=== PATIENT | female | born 1975 | race Hispanic/Latino ===

== ENCOUNTER 2016-12-13 21:17 | Emergency (ER) | payer OTHER ==
[~2016-12-13] VITALS: Ht 152.4 cm; Wt 48.8 kg
[2016-12-13 23:30] LABS: INFLUENZA A VIRAL ANTIGEN NEGATIVE; INFLUENZA B VIRAL ANTIGEN NEGATIVE
[2016-12-13 23:41] VITALS: BP 117/84
== END 2016-12-13 23:45 | disposition home or self-care (01) ==
LOC: EME 21:17
PROVIDERS: Emergency Medicine
DX: B34.9 Viral infection, unspecified (principal); J02.9 Acute pharyngitis, unspecified; Z88.6 Allergy status to analgesic agent
CPT/HCPCS: 71020; 87502; 87651 90; 99281; 99284

== ENCOUNTER 2017-02-26 12:06 | Emergency (ER) | payer OTHER ==
[~2017-02-26] VITALS: Ht 152.4 cm; Wt 47.9 kg
[2017-02-26 13:38] LABS: BASOPHIL COUNT 0.1 K/uL (0-0.1); EOSINOPHIL (%) 1.2 % (0-5); EOSINOPHIL COUNT 0.1 K/uL (0-0.3); HEMATOCRIT 37.3 % (36.0-46.0); IMMATURE GRANULOCYTE (%) 0.2 % (0.0-0.7); INSTRUMENT ABS NEUTROPHIL CT 6.4 K/uL; LYMPHOCYTE COUNT 2.1 K/uL (1.0-2.8); MCH 27.1 PG (29.0-34.0); MCHC 32.2 G/DL (30.0-36.0); MCV 84.2 FL (83-99); MEAN PLAT.VOLUME 9.4 uM^3 (9.5-12.4); MONOCYTE (%) 14.6 % (3-12); MONOCYTE COUNT 1.5 K/uL (0-0.8); NEUTROPHIL (%) 62.7 % (45-76); NEUTROPHIL COUNT 6.4 K/uL (1.8-6.4); PLATELET COUNT 491 K/uL (156-360); RBC DIS.WIDTH-CV 16.8 % (11.8-14.6); RBC DIS.WIDTH-SD 51.8 % (39-53); RED BLOOD COUNT 4.43 M/uL (3.80-5.20); WHITE BLOOD COUNT 10.2 K/uL (4.1-10.2)
[2017-02-26 13:59] LABS: QUANTITATIVE HCG < 4.0 MIU/ML
[2017-02-26 14:07] LABS: CHLORIDE 107 mEq/L (99-109); POTASSIUM 3.6 mEq/L (3.7-5.4); SODIUM 139 mEq/L (136-147)
[2017-02-26 14:09] LABS: GLUCOSE 85 mg/dL (70-99)
[2017-02-26 14:11] LABS: ANION GAP 8 MEQ/L (2-14)
[2017-02-26 14:13] LABS: GFR ESTIMATE (CALCULATED) > 59 mL/min/
[2017-02-26 14:14] LABS: UREA NITROGEN (BUN) 7 mg/dL (9-23)
[2017-02-26 14:28] LABS: INFLUENZA A VIRAL ANTIGEN NEGATIVE; INFLUENZA B VIRAL ANTIGEN NEGATIVE
[2017-02-26] MEDS ORDERED: TAMIFLU6 MG/1 ML PO (15:26)
[2017-02-26] MEDS ORDERED: ZOFRAN ODT4 MG PO (15:26)
[2017-02-26] MEDS ORDERED: FLONASE16 G1 BOTH NARES (15:26)
[2017-02-26] MEDS ORDERED: VENTOLIN HFA18 GM IH (15:29)
[2017-02-26] MEDS ORDERED: PREDNISONE20 MG PO (15:29)
[2017-02-26] MEDS ORDERED: BENTYL20 MG PO (16:40)
[2017-02-26 16:46] VITALS: BP 112/76
== END 2017-02-26 16:48 | disposition home or self-care (01) ==
LOC: EME 12:06
PROVIDERS: Physician Assistant
DX: J02.9 Acute pharyngitis, unspecified (principal); M79.1 Myalgia; R51 Headache; R09.81 Nasal congestion; R00.0 Tachycardia, unspecified; R50.9 Fever, unspecified; Z90.81 Acquired absence of spleen; Z87.09 Personal history of other diseases of the respiratory system
CPT/HCPCS: 71020; 80048; 84702; 85025; 87502; 87651 90; 99281; 99285; J0500; J2405; J2765; J7030

== ENCOUNTER 2017-12-02 12:59 | Emergency (ER) | payer OTHER ==
[~2017-12-02] VITALS: Ht 152.4 cm; Wt 51.1 kg
[~2017-12-02 12:59] MED LIST: BENTYL20 MG PO; FLONASE16 G1 BOTH NARES; PREDNISONE20 MG PO; TAMIFLU6 MG/1 ML PO; VENTOLIN HFA18 GM IH; ZOFRAN ODT4 MG PO
[2017-12-02] MEDS ORDERED: KEFLEX500 MG PO (15:54)
[2017-12-02 17:43] VITALS: BP 122/74
== END 2017-12-02 17:47 | disposition home or self-care (01) ==
LOC: EME 12:59
DX: J06.9 Acute upper respiratory infection, unspecified (principal); B34.9 Viral infection, unspecified; Z88.6 Allergy status to analgesic agent
CPT/HCPCS: 99281; 99284